=== PATIENT | female | born 1975 | race African-American/Black ===

== ENCOUNTER 2023-03-09 17:44 | Inpatient (IN) | payer MEDICAID, SELFPAY ==
--- NOTE | ~2023-03-09 | CT_ITS ---
EXAMINATION: CT ABDOMEN AND PELVIS WITHOUT CONTRAST CLINICAL INFORMATION: Left lower quadrant pain COMPARISON: None available. TECHNIQUE: Multidetector volumetric imaging was performed from the superior aspect of the liver through the pubic symphysis. Sagittal and coronal reformatted images were obtained on the technologist's workstation. This CT examination was performed using dose optimization techniques as appropriate, variously including the following: *Automated exposure control *Adjustment of mA and/or kV according to patient size (this includes techniques or standardized protocols for targeted exams where dose is matched to indication/reason for exam; i.e. extremities or head) *Use of iterative reconstruction technique DLP: 353 mGy-cm FINDINGS: Exam is limited due to lack of oral and IV contrast and velocity of intra-abdominal fat. LUNG BASES: The visualized lung bases are unremarkable. LIVER, GALLBLADDER, AND BILIARY TREE: The liver is normal in size, shape, and attenuation. No focal hepatic lesion or biliary ductal dilatation is present. The gallbladder is unremarkable with no evidence of radiopaque gallstones, gallbladder wall thickening, or obvious pericholecystic inflammatory changes. PANCREAS: Unremarkable. SPLEEN: Unremarkable. ADRENAL GLANDS: Unremarkable. KIDNEYS AND URETERS: The kidneys are normal in size, shape, and attenuation. No hydronephrosis, hydroureter, or calculi seen. No perinephric stranding. BLADDER: Unremarkable. GASTROINTESTINAL TRACT: Postsurgical changes from gastric bypass. The colon is distended and fluid-filled. There is diffuse wall thickening of the colon suggestive enciso colitis The small bowel is difficult to evaluate due to lack of oral contrast, lack of IV contrast possibly of intra-abdominal fat. There is question of bowel wall thickening of the terminal ileum as well. The appendix is not identified with certainty. No ascites. No free air. ABDOMINAL WALL: No significant hernia is appreciated. LYMPH NODES: Normal. VASCULAR: Unremarkable. PELVIC VISCERA: The uterus is retroverted. OSSEOUS STRUCTURES: Unremarkable. CT/CT abdomen pelvis wo IV con IMPRESSION: Limited exam due to lack of oral and IV contrast and paucity of intra-abdominal fat. Severe enciso colitis. There may be terminal ileitis as well. Postoperative changes from gastric bypass. Fleischner guidelines were followed.
[2023-03-09 18:44] VITALS: BP 110/76; PULSE 118; RESP 18; TEMP 36.8; O2SAT 100
--- NOTE | 2023-03-09 18:45 | ED_ITS ---
HPI - General Adult General Chief complaint: Abdominal Pain Stated complaint: multiple complaints Time Seen by Provider: 03/09/23 22:25 Source: patient Mode of arrival: ambulatory History of Present Illness HPI narrative: This is a 47-year-old female who has a history of bipolar but states that she is compliant with her medications and never misses any of them, she states she had bariatric surgery in 2012 and has been doing well until approximately the 1st part of the year when she states she has had unintentional weight loss. Over the past couple of months this is been associated with lower abdominal discomfort and diarrhea. She denies any nausea or vomiting and states that she tries to eat but that it hurts her stomach. She states that over the past 24-48 hours she has started to have some blood with her episodes of diarrhea. Related Data Home Medications Medication Instructions Recorded Confirmed bupropion HCl 100 mg tablet,12 hr 100 mg PO QAM 06/01/21 sustained-release cyanocobalamin (vitamin B-12) 1,000 mcg PO DAILY 06/01/21 1,000 mcg tablet (Vitamin B-12) ibuprofen 600 mg tablet 600 mg PO TID 06/01/21 quetiapine 400 mg tablet 400 mg PO BEDTIME 06/01/21 Allergies Allergy/AdvReac Type Severity Reaction Status Date / Time No Known Allergies Allergy Verified 06/01/21 14:16 Review of Systems 2 Review of Systems: Pertinent positives and negatives as stated in HPI [facility] Past Medical History Source: nursing notes reviewed Social History Social History Patient Tobacco Use Status: Never used Tobacco Smoked in Last 30 Days: No Use of substances other than those prescribed or required for medical reasons: No Advance Directives: No Advance Directives Information Provided: No Patient : No Physical Exam ED Vital Signs: Vital Signs - 24 hr 03/09/23 18:44 03/09/23 22:03 Temperature 98.3 F 98.6 F Pulse Rate 118 H 118 H Respiratory Rate 18 22 H Blood Pressure 110/76 114/70 Pulse Oximetry 100 100 Oxygen Delivery Method Room Air Room Air BMI result Body Mass Index 20.0 VITAL SIGNS: Reviewed. GENERAL: Cachectic, temporal wasting, in no acute distress. HEAD: Normocephalic/atraumatic EYES: PERRLA, EOMI EARS: Ext canals without abnormality NOSE: Nares patent bilateral OROPHARYNX: no oral lesions noted, posterior pharynx clear NECK: Supple, no adenopathy LUNGS: Normal breath sounds. No adventitious sounds or accessory muscle use. SpO2<100> CARDIOVASCULAR: Regular rate and rhythm without noted murmurs ABDOMEN: Soft, scaphoid, diffuse tenderness without rebound, non-distended with bowel sounds. MUSCULOSKELETAL: No tenderness, deformities, or effusions noted on gross inspection. EXTREMITIES: No cyanosis, clubbing or edema. SKIN: Inspection of the skin reveals no rashes NEUROLOGIC: Alert and oriented x 4. Strength and sensation to light touch were grossly intact x 4. Course Course Course Narrative: This is an RME: Additional HPI, ROS, PE not included below will be deferred to primary provider. This is a [id number], with a hx of bipolar disorder and gastric bypass surgery, presenting to the ER with a complaint of left sided abdominal pain intermittently for 4 months, worsening since Feb 26. Reports that she has lost weight diarrhea with some blood. No nausea, vomiting. She has been seen by her provider who referred her to a GI specialist but is awaiting for a phone call. Plan: Labs, UA, ct abd Medications Administered Generic Name Dose Route Start Last Admin Trade Name Freq PRN Reason Stop Dose Admin Sodium Chloride 1,000 mls @ 999 mls/hr 03/09/23 22:30 03/09/23 22:58 Ns IV 03/09/23 23:30 999 mls/hr .[id number] MAKENZIE Administration Discontinued Medications Generic Name Dose Route Start Last Admin Trade Name Freq PRN Reason Stop Dose Admin Piperacillin Sod/Tazobactam 50 mls @ 100 mls/hr 03/09/23 22:26 03/09/23 22:58 Sod 3.375 gm/ Sodium Chloride IV 03/09/23 22:55 100 mls/hr ONCE ONE Administration Medical Decision Making Medical Decision Making [facility] Narrative: 2229: 47-year-old female with history and clinical presentation, DDX: Cancer, colitis, food allergy, less likely felt to be associated with underlying psychiatric diagnosis. I reviewed all investigations and hematologic indices are significant for leukocytosis and left shift with an elevated platelet count and mildly microcytic anemia. Chemistry indices demonstrate a low potassium but no EBONY and normal level of magnesium. Urinalysis suggestive of possible UTI as urine appears to be clean. Ordered lactic acid and blood cultures and then administered 1 L of IV fluids as well as antibiotics. Patient will also receive potassium repletion. CT scan demonstrates enciso colitis. I discussed the case with the inpatient hospitalist who accepts admission Differential Diagnosis Differential Diagnoses: The differential diagnosis associated with the presentation includes Please see the discussion above Admission/Observation Consideration of admission/observation: Escalation of care including admission/observation considered Please see the discussion above Consult Healthcare Provider Management of the patient was discussed with: Hospitalist Please see the discussion above Lab Data MDM Lab Attestation statement: I reviewed the patient's lab results. Please see the discussion above 03/09/23 19:18 03/09/23 19:18 Labs: Lab Results 03/09/23 03/09/23 03/09/23 Range/Units 19:18 23:00 23:01 WBC 16.2 H (4.8-10.8) X10*3/uL RBC 4.66 (4.20-5.50) X10*6/uL Hgb 11.1 L (12.0-16.0) g/dl Hct 34.9 L (37.0-47.0) % MCV 74.9 L (80.0-98.0) fL MCH 23.8 L (27.0-33.0) pg MCHC 31.8 (31.0-35.0) g/dl RDW 14.3 (11.0-16.0) % Plt Count 660 H (160-400) X10*3/uL MPV 8.6 L (9.4-12.3) fL Immature Gran % (Auto) 0.6 H (0.0-0.4) % Neut % (Auto) 81.0 H (45-73) % Lymph % (Auto) 9.1 L (20-40) % [place] % (Auto) 9.0 (2-11) % Eos % (Auto) 0.1 (0-4) % Baso % (Auto) 0.2 (0-2) % Lymph # (Auto) 1.5 (1.2-4.9) X10*3/uL [place] # (Auto) 1.5 H (0.1-1.2) X10*3/uL Eos # (Auto) 0.0 (0.0-0.4) X10*3/uL Baso # (Auto) 0.0 (0.0-0.2) X10*3/uL Abs Immat Gran (auto) 0.09 H (0.00-0.03) X10*3/uL Absolute Neuts (auto) 13.1 H (2.0-8.3) x10*3/uL Absolute Nucleated RBC 0.000 (0.0-0.012) X10*3/uL Nucleated RBC % (auto) 0.0 (0.0-0.2) /100WBC Sodium 133 L (135-145) mmol/L Potassium 3.0 L (3.3-5.1) mmol/L Chloride 101 (96-108) mmol/L Carbon Dioxide 22 (22-29) mmol/L Anion Gap 13 (12-20) BUN 10 (9-16) mg/dL Creatinine 0.82 (0.5-1.4) mg/dL Estim Creat Clear Calc 79.3 Estimated GFR > 60 Random Glucose 86 (60-115) mg/dL Lactic Acid 1.0 (0.5-2.0) mmol/L Calcium 8.3 L (8.4-10.2) mg/dL Magnesium 1.9 (1.6-2.6) mg/dL Total Bilirubin 0.6 (0.0-1.0) mg/dL Direct Bilirubin 0.3 (0.0-0.5) mg/dL AST 20 (5-31) U/L ALT 14 (0-31) U/L Alkaline Phosphatase 81 (39-117) U/L Total Protein 6.2 L (6.5-8.0) g/dL Albumin 3.2 L (3.5-5.0) g/dL Lipase 5 L (8-78) U/L Urine Color Yellow Urine Appearance Clear Urine pH 6.0 (5.0-9.0) Ur Specific [place] 1.020 (1.005-1.025) Urine Protein Negative (Neg-Trace) mg/dL Urine Glucose (UA) Negative (Negative) mg/dL Urine Ketones 80 (Negative) mg/dL Urine Blood Small (1+) H (Negative) Urine Nitrite Negative (Negative) Ur Leukocyte Esterase Moderate (2+) H (Negative) Urine RBC >20 H (0-2) /HPF Urine WBC 11-20 H (0-5) /HPF Ur Squamous Epith Cells 0-2 (0-2) /HPF Urine Bacteria 4+ (None Seen) Hyaline Casts 0-2 (0-2) /LPF Radiology Impression Discussion of test interpretation with radiology: I have reviewed the radiologist's reading. Radiologist Impression: Please see the discussion above Chronic Conditions Patient?s care impacted by: Other Bipolar Critical Care Time Critical Care Time Critical Care Time: Yes Total Critical Care Time: 30 Attestation: I personally attest to this time spent taking care of the patient. Discharge Plan Discharge Clinical Impression: Sepsis, Pancolitis, UTI (urinary tract infection), Hypokalemia Patient Disposition: Admitted As Inpatient Prescriptions: No Action cyanocobalamin (vitamin B-12) [Vitamin B-12] 1,000 mcg tablet 1,000 mcg PO DAILY quetiapine 400 mg tablet 400 mg PO BEDTIME bupropion HCl 100 mg tablet sustained-release 12 hr 100 mg PO QAM ibuprofen 600 mg tablet 600 mg PO TID
[2023-03-09 19:22] LABS: MANUAL DIFF FLAG NO
[2023-03-09 19:24] LABS: Basophils Percent Auto 0.2 % (0-2); Eosinophils Percent Auto 0.1 % (0-4); Hematocrit 34.9 % (37.0-47.0); Hemoglobin 11.1 g/dl (12.0-16.0); Imm Gran Abs Auto 0.09 X10*3/uL (0.00-0.03); Imm Gran Pct Auto 0.6 % (0.0-0.4); Lymphocytes Absolute Auto 1.5 X10*3/uL (1.2-4.9); Lymphocytes Percent Auto 9.1 % (20-40); Mean Corpuscular HGB Conc 31.8 g/dl (31.0-35.0); Mean Corpuscular Hemoglobin 23.8 pg (27.0-33.0); Mean Corpuscular Volume 74.9 fL (80.0-98.0); Mean Platelet Volume 8.6 fL (9.4-12.3); Monocytes Absolute Auto 1.5 X10*3/uL (0.1-1.2); Neutrophils Absolute Auto 13.1 x10*3/uL (2.0-8.3); Platelet Count 660 X10*3/uL (160-400); Red Blood Count 4.66 X10*6/uL (4.20-5.50); Red Cell Distribution Width 14.3 % (11.0-16.0); White Blood Count 16.2 X10*3/uL (4.8-10.8)
[2023-03-09 19:58] LABS: Alanine Aminotransferase 14 U/L (0-31); Albumin Level 3.2 g/dL (3.5-5.0); Alkaline Phosphatase 81 U/L (39-117); Anion Gap 13 (12-20); Aspartate Amino Transferase 20 U/L (5-31); Bilirubin Direct 0.3 mg/dL (0.0-0.5); Bilirubin Total 0.6 mg/dL (0.0-1.0); Blood Urea Nitrogen 10 mg/dL (9-16); Calcium 8.3 mg/dL (8.4-10.2); Carbon Dioxide 22 mmol/L (22-29); Chloride 101 mmol/L (96-108); Creatinine Clr Calc Pharmacy 79.3; Estimated Glomerular Filt Rate > 60; Glucose Random 86 mg/dL (60-115); Lipase 5 U/L (8-78); Magnesium 1.9 mg/dL (1.6-2.6); Sodium 133 mmol/L (135-145); Total Protein 6.2 g/dL (6.5-8.0)
[2023-03-09 22:03] VITALS: BP 114/70; PULSE 118; RESP 22; TEMP 37; O2SAT 100
--- NOTE | 2023-03-09 22:04 | MHC.EDTECH ---
This tech was doing hourly rounding and vitals ,patients heart rate was at 118, RN Elza was made aware, patient changed into hospital attire and placed on cardiac monitor technician. Attempted to get a urine sample ,patient is unable to give specimen at this time. Call hopper within reach
[2023-03-09] MEDS: Piperacillin Sodium/Tazobactam 3.375 GM in 0.9 % Sodium Chloride 50 ML IV (22:58)
[2023-03-09] MEDS: 0.9 % Sodium Chloride 1,000 ML 999 ML IV (22:58)
[2023-03-09 23:13] LABS: Appearance Urine Clear; Color Urine Yellow; Glucose Urine UA Negative (Negative); Leukocyte Esterase Urine Moderate (2+) (Negative); Nitrite Urine Negative (Negative); UMIC TRIGGER UACC YES; Urine Blood Small (1+) (Negative); Urine Ketones 80 mg/dL (Negative); Urine Protein Negative (Neg-Trace)
[2023-03-09 23:18] LABS: Bacteria Urine 4+ (None Seen); Hyaline Casts Urine 0-2 /LPF (0-2); RBC Urine >20 /HPF (0-2); Squamous Epithelial Cell Urine 0-2 /HPF (0-2); UACC Culture Trigger YES
--- NOTE | 2023-03-09 23:33 | P.HPHOSP_ITS ---
History of Present Illness Date of Service: 03/09/23 Chief Complaint: Abdominal Pain This is a 47-year-old female with pertinent history of mood disorder, bariatric surgery in 2013 who presents to the emergency department for evaluation of abdominal discomfort and diarrhea. Patient states she has been having generalized abdominal discomfort which has been ongoing for the last few months. The abdominal pain worsened 10 days prior to presentation and it has been associated with nonbloody diarrhea. Patient states he is unable to keep anything down as she has a loose bowel movement every time she eats anything. No nausea or vomiting. The discomfort is in the lower abdomen, constant, without any relieving factors and nonradiating. Patient also noticed 2 episodes of blood in stools last week. No history of similar episodes in the past. No fever, chills, chest discomfort, palpitations, shortness of breath, changes in urinary habits. In the emergency department, patient was found to be septic and imaging concerning for pancolitis Review of Systems 2 Constitutional: Constitutional: Reports fatigue, Reports lethargy, Reports malaise, Reports poor appetite and Reports weight loss Cardiovascular: Cardiovascular: Reports no additional cardiovascular complaints Respiratory: Respiratory: Reports no additional respiratory complaints Gastrointestinal: Gastrointestinal: Reports abdominal pain and Reports loose stools Genitourinary: Genitourinary: Reports no additional female genitourinary complaints Endocrine: Endocrine: Reports fatigue PMFSH Medical History (Updated 03/09/23 @ 23:47 by iTmothy Mejia MD) Mood disorder Pertinent family history: No family history of early CAD Surgical History (Updated 03/09/23 @ 23:48 by Timothy Mejia MD) H/O bariatric surgery Social History Patient Tobacco Use Status: Never used Tobacco Smoked in Last 30 Days: No Use of substances other than those prescribed or required for medical reasons: No Advance Directives: No Advance Directives Information Provided: No Patient : No Meds Allergies Allergy/AdvReac Type Severity Reaction Status Date / Time No Known Allergies Allergy Verified 06/01/21 14:16 Home Medications Medication Instructions Recorded Confirmed Last Taken Type bupropion HCl 100 mg tablet,12 hr 100 mg PO QAM 06/01/21 Unknown History sustained-release cyanocobalamin (vitamin B-12) 1,000 mcg PO DAILY 06/01/21 Unknown History 1,000 mcg tablet (Vitamin B-12) ibuprofen 600 mg tablet 600 mg PO TID 06/01/21 Unknown History quetiapine 400 mg tablet 400 mg PO BEDTIME 06/01/21 Unknown History Physical Exam 2 Vital Signs and Narrative: Vital Signs: Last Vital Signs Temp 98.6 F 03/09/23 22:03 Pulse 118 H 03/09/23 22:03 Resp 22 H 03/09/23 22:03 BP 114/70 03/09/23 22:03 Pulse Ox 100 03/09/23 22:03 O2 Del Method Room Air 03/09/23 22:03 BMI result Body Mass Index 20.0 Middle-aged male lying in bed in no distress Neck supple, no JVD Tachycardic with regular rhythm, S1-S2 heard Regular breath sounds bilaterally, no wheezing or crackles appreciated Abdomen soft nontender, no guarding, no rigidity Patient is awake, alert and oriented to self, place, time and person ; no focal motor deficit Psych: Normal mood No pedal edema Results Labs 03/09/23 19:18 03/09/23 19:18 Labs: Laboratory Results - last 24 hr 03/09/23 03/09/23 03/09/23 19:18 23:00 23:01 MCV 74.9 L MCH 23.8 L MCHC 31.8 RDW 14.3 Plt Count 660 H MPV 8.6 L Immature Gran % (Auto) 0.6 H Neut % (Auto) 81.0 H Lymph % (Auto) 9.1 L [place] % (Auto) 9.0 Eos % (Auto) 0.1 Baso % (Auto) 0.2 Lymph # (Auto) 1.5 [place] # (Auto) 1.5 H Eos # (Auto) 0.0 Baso # (Auto) 0.0 Abs Immat Gran (auto) 0.09 H Absolute Neuts (auto) 13.1 H Absolute Nucleated RBC 0.000 Nucleated RBC % (auto) 0.0 Anion Gap 13 Estim Creat Clear Calc 79.3 Estimated GFR > 60 Random Glucose 86 Lactic Acid 1.0 Calcium 8.3 L Magnesium 1.9 Total Bilirubin 0.6 Direct Bilirubin 0.3 AST 20 ALT 14 Alkaline Phosphatase 81 Total Protein 6.2 L Albumin 3.2 L Lipase 5 L Urine Color Yellow Urine Appearance Clear Urine pH 6.0 Ur Specific [place] 1.020 Urine Protein Negative Urine Glucose (UA) Negative Urine Ketones 80 Urine Blood Small (1+) H Urine Nitrite Negative Ur Leukocyte Esterase Moderate (2+) H Urine RBC >20 H Urine WBC 11-20 H Ur Squamous Epith Cells 0-2 Urine Bacteria 4+ Hyaline Casts 0-2 Imaging Radiologist's Impressions: Impressions Abdomen/Pelvis CT 03/09/23 19:52 IMPRESSION: Limited exam due to lack of oral and IV contrast and paucity of intra-abdominal fat. Severe enciso colitis. There may be terminal ileitis as well. Postoperative changes from gastric bypass. Fleischner guidelines were followed. Assessment and Plan (1) Pancolitis: Status: Acute (2) Sepsis: Status: Acute Plan This is a 47-year-old female with pertinent history of mood disorder, bariatric surgery in 2012 who presents to the emergency department for evaluation of abdominal discomfort and diarrhea. #. Abdominal pain with diarrhea. Imaging with enciso colitis. Will admit patient and initiate empiric IV antibiotics. Gastroenterology consulted, appreciate assistance. GI panel and C diff pending #. Sepsis due to above. Resuscitated with IV crystalloids. Lactic acid and blood culture obtained #. Hypokalemia due to GI losses. Repleted #. Asymptomatic bacteriuria. No urinary symptoms. On antibiotics as above #. Mood disorder. Continue home mood stabilizers Med rec pending DVT prophylaxis: Lovenox Full code Admit as inpatient and will require two night minimum hospital stay for IV antibiotics Time Spent With Patient Time: Total time managing care of this patient today ____ minutes. Quality Stroke Does the patient have a stroke diagnosis?: No VTE Prior VTE?: No VTE Risk Level:: Medical - moderate - high VTE Device Contraindication: Treatment Not Indicated VTE Drug Contraindication: N/A - Med Ordered
[2023-03-09 23:39] VITALS: BP 116/82; PULSE 108; RESP 16; TEMP 36.8; O2SAT 98
--- NOTE | 2023-03-09 23:40 | MHC.EDTECH ---
Hourly rounds and vitals completed,Belongings list completed and call hopper within reach.
[2023-03-09 23:49] LABS: UPreg QC Valid YES; Urine Pregnancy NEGATIVE (NEGATIVE)
[2023-03-09] MEDS: QUEtiapine Fumarate 100 MG TABLET PO (23:57)
[2023-03-09] MEDS: Potassium Chloride/H20 10 MEQ/100 ML PIGGYBACK 100 MEQ IV (23:59)
[2023-03-10] MEDS: Potassium Chloride Packet 20 MEQ PACKET 40 MEQ PO (00:03)
[2023-03-10] MEDS: Potassium Chloride/H20 10 MEQ/100 ML PIGGYBACK 100 MEQ IV (01:14)
[2023-03-10 01:25] LABS: CDiff Gene PCR POSITIVE (Negative)
[2023-03-10 02:04] LABS: CDIFF Internal ctrl Dots and bkg OK (V); CDiff Toxin Negative (Negative)
--- NOTE | 2023-03-10 02:16 | MHC.EDTECH ---
Hourly rounds completed,patient is sleeping comfortably at this time and call hopper within reach.
[2023-03-10 03:44] VITALS: BP 104/58; PULSE 104; RESP 16; TEMP 36.9; O2SAT 97
--- NOTE | 2023-03-10 03:46 | MHC.EDTECH ---
Hourly rounds and vitals completed,patient is sleeping comfortably at this time. patient's blood pressure is low 104/58 RN Elza made aware
[2023-03-10 05:24] LABS: MANUAL DIFF FLAG NO
[2023-03-10 05:38] LABS: Basophils Percent Auto 0.3 % (0-2); Eosinophils Percent Auto 0.2 % (0-4); Hematocrit 31.2 % (37.0-47.0); Hemoglobin 9.8 g/dl (12.0-16.0); Imm Gran Abs Auto 0.07 X10*3/uL (0.00-0.03); Imm Gran Pct Auto 0.6 % (0.0-0.4); Lymphocytes Absolute Auto 1.7 X10*3/uL (1.2-4.9); Mean Corpuscular HGB Conc 31.4 g/dl (31.0-35.0); Mean Corpuscular Hemoglobin 23.6 pg (27.0-33.0); Mean Corpuscular Volume 75.2 fL (80.0-98.0); Mean Platelet Volume 8.7 fL (9.4-12.3); Monocytes Absolute Auto 1.4 X10*3/uL (0.1-1.2); Monocytes Percent Auto 12.4 % (2-11); Neutrophils Absolute Auto 8.3 x10*3/uL (2.0-8.3); Neutrophils Percent Auto 71.5 % (45-73); Platelet Count 563 X10*3/uL (160-400); Red Blood Count 4.15 X10*6/uL (4.20-5.50); Red Cell Distribution Width 14.5 % (11.0-16.0); White Blood Count 11.6 X10*3/uL (4.8-10.8)
[2023-03-10 05:58] LABS: Anion Gap 15 (12-20); Blood Urea Nitrogen 7 mg/dL (9-16); Calcium 7.6 mg/dL (8.4-10.2); Carbon Dioxide 17 mmol/L (22-29); Chloride 105 mmol/L (96-108); Creatinine Clr Calc Pharmacy 98.5; Estimated Glomerular Filt Rate > 60; Glucose Random 69 mg/dL (60-115); Potassium 3.4 mmol/L (3.3-5.1); Sodium 134 mmol/L (135-145)
--- NOTE | 2023-03-10 06:07 | MHC.EDTECH ---
Hourly rounds completed ,patient is sleeping at this time and call hopper within reach.
[2023-03-10] MEDS: Piperacillin Sodium/Tazobactam 4.5 GM in 0.9 % Sodium Chloride 100 ML IV ×4 (06:12→23:55)
--- NOTE | 2023-03-10 06:29 | PC.NURSE ---
Pt is currently resting in bed at this time. A&Ox4, GCS 15, with warm, dry skin. Pt denies pain at this time. Pt has a 20g IV in the left AC, flushing well. Pt has been ambulatory with one assist to the bathroom. Pt is c-diff positive, contact precautions are in place.
[2023-03-10 08:00] VITALS: BP 93/59; PULSE 106; RESP 20; O2SAT 100
[2023-03-10] MEDS: Enoxaparin Sodium 40 MG/0.4 ML SYRINGE SUBCUT (08:10)
[2023-03-10 09:08] LABS: Adenovirus F 40/41 Not Detected (Not Detect.); Astrovirus Not Detected (Not Detect.); Campylobacter Not Detected (Not Detect.); Cryptosporidium Not Detected (Not Detect.); Cyclospora cayetanensis Not Detected (Not Detect.); E. coli EAEC Not Detected (Not Detect.); E. coli EPEC Not Detected (Not Detect.); E. coli ETEC Not Detected (Not Detect.); E. coli STEC Not Detected (Not Detect.); Entamoeba histolytica Not Detected (Not Detect.); Giardia lamblia Not Detected (Not Detect.); Norovirus GI/GII Not Detected (Not Detect.); Plesiomonas shigelloides Not Detected (Not Detect.); Rotavirus A Not Detected (Not Detect.); Salmonella Not Detected (Not Detect.); Sapovirus Not Detected (Not Detect.); Shigella sp./EIEC Not Detected (Not Detect.); Vibrio Not Detected (Not Detect.); Vibrio Cholerae Not Detected (Not Detect.); Yersinia enterocolitica Not Detected (Not Detect.)
--- NOTE | 2023-03-10 09:47 | PHA.MEDREC ---
Pharmacy Consult ? Medication Reconciliation Pharmacy has completed the medication reconciliation.PT HAD MEDICATION BOTTLES THAT MATCHED CLAIM HISTORY. SHE CONFIRMED OTC MEDICATIONS AND LAST DOSE OF MEDICATIONS WAS TUESDAY MORNING.
--- NOTE | 2023-03-10 10:26 | MHC.CM.PN ---
Met w/pt to review d/c planning needs: pt resides w/ 16 year old child - independent w/care needs, no services or DME. Vehicle in ED lot: Pt's sister arriving to care for dtr. No additional services needed. HCP copy requested: PCP Tia PITT.
--- NOTE | 2023-03-10 11:13 | HO.PM.IMPN ---
Subjective Subjective Date of Service: 03/10/23 Interval History: f/u on abdominal pain, n/v colitis interval history, she fels better, no less diarrhea, minimal pain, Physical Exam Vital Signs: Vital Signs: Last Vital Signs Temp 98.4 F 03/10/23 03:44 Pulse 106 H 03/10/23 08:00 Resp 20 03/10/23 08:00 BP 93/59 L 03/10/23 08:00 Pulse Ox 100 03/10/23 08:00 O2 Del Method Room Air 03/10/23 08:00 BMI result Body Mass Index 20.0 Const: Other: General: AO X 3, no acute distress Resp: CTA bilateral CVS: S1,S2,RRR GI: +BS, NT, no distention Skin: No rash Neuro: motor grossly intact Psych: appropriate affect Objective Data Active Medications Acetaminophen (Acetaminophen 325 Mg Tablet) 650 mg PO Q6H PRN PRN Reason: Pain, Mild (Pain Scale 1-3) Acetaminophen (Acetaminophen Supp 650 Mg Supp.Rect) 650 mg [place] Q6H PRN PRN Reason: Pain, Mild (Pain Scale 1-3) Enoxaparin Sodium (Enoxaparin Sodium 40 Mg/0.4 Ml Syringe) 40 mg SUBCUT Q24H [facility] Last Admin: 03/10/23 08:10 Dose: 40 mg Documented By: RAJENDRA Piperacillin Sod/Tazobactam (Sod 4.5 gm/ Sodium Chloride) 100 mls @ 200 mls/hr IV Q6H [facility] Last Admin: 03/10/23 06:12 Dose: 200 mls/hr Documented By: TONNY Melatonin (Melatonin 3 Mg Tablet) 6 mg PO BEDTIME PRN PRN Reason: Insomnia Ondansetron HCl (Ondansetron Hcl 4 Mg/2 Ml Vial) 4 mg IVPUSH Q8H PRN PRN Reason: Nausea and Vomiting Sodium Chloride (0.9 % Sodium Chloride Flush 3 Ml Syringe) 3 ml IVFLUSH QSHIFT [facility] Last Admin: 03/10/23 00:00 Dose: 3 ml Documented By: TONNY Labs 03/10/23 04:36 03/10/23 04:36 Labs: Laboratory Results - last 24 hr 03/09/23 03/09/23 03/09/23 19:18 23:00 23:01 MCV 74.9 L MCH 23.8 L MCHC 31.8 RDW 14.3 Plt Count 660 H MPV 8.6 L Immature Gran % (Auto) 0.6 H Neut % (Auto) 81.0 H Lymph % (Auto) 9.1 L Iron % (Auto) 9.0 Eos % (Auto) 0.1 Baso % (Auto) 0.2 Lymph # (Auto) 1.5 Iron # (Auto) 1.5 H Eos # (Auto) 0.0 Baso # (Auto) 0.0 Abs Immat Gran (auto) 0.09 H Absolute Neuts (auto) 13.1 H Absolute Nucleated RBC 0.000 Nucleated RBC % (auto) 0.0 Anion Gap 13 Estim Creat Clear Calc 79.3 Estimated GFR > 60 Random Glucose 86 Lactic Acid 1.0 Calcium 8.3 L Magnesium 1.9 Total Bilirubin 0.6 Direct Bilirubin 0.3 AST 20 ALT 14 Alkaline Phosphatase 81 Total Protein 6.2 L Albumin 3.2 L Lipase 5 L Beta HCG, Quant Cancelled Urine Color Yellow Urine Appearance Clear Urine pH 6.0 Ur Specific [place] 1.020 Urine Protein Negative Urine Glucose (UA) Negative Urine Ketones 80 Urine Blood Small (1+) H Urine Nitrite Negative Ur Leukocyte Esterase Moderate (2+) H Urine RBC >20 H Urine WBC 11-20 H Ur Squamous Epith Cells 0-2 Urine Bacteria 4+ Hyaline Casts 0-2 Urine Test NEGATIVE Stl C. cayetanensis PCR Stool Rotavirus A PCR Stl Adenov F 40/41 PCR Stool Astrovirus (PCR) Stool Campylobacter PCR Stool Cryptosporidium PCR Stl Sh Tox Pr E STEC PCR Stool E coli O157 PCR Stl Enterotoxigenic E PCR Stool EPEC (PCR) Stool EAEC (PCR) Stl E. histolytica PCR Stool Giardia Lamblia PCR Stl P. shigelloides PCR Stool Salmonella PCR Stool Sapovirus (PCR) Stl Shigella/EIEC PCR St Y.enterocolitica PCR Stool Vibrio (PCR) Stl Vibrio cholerae PCR Stl Norovirus GI/GII PCR C. difficile Tox B Gene C. difficile Toxin A&B C. difficile Interpret 03/10/23 03/10/23 00:20 04:36 MCV 75.2 L MCH 23.6 L MCHC 31.4 RDW 14.5 Plt Count 563 H MPV 8.7 L Immature Gran % (Auto) 0.6 H Neut % (Auto) 71.5 Lymph % (Auto) 15.0 L Iron % (Auto) 12.4 H Eos % (Auto) 0.2 Baso % (Auto) 0.3 Lymph # (Auto) 1.7 Iron # (Auto) 1.4 H Eos # (Auto) 0.0 Baso # (Auto) 0.0 Abs Immat Gran (auto) 0.07 H Absolute Neuts (auto) 8.3 Absolute Nucleated RBC 0.000 Nucleated RBC % (auto) 0.0 Anion Gap 15 Estim Creat Clear Calc 98.5 Estimated GFR > 60 Random Glucose 69 Lactic Acid Calcium 7.6 L D Magnesium Total Bilirubin Direct Bilirubin AST ALT Alkaline Phosphatase Total Protein Albumin Lipase Beta HCG, Quant Urine Color Urine Appearance Urine pH Ur Specific [place] Urine Protein Urine Glucose (UA) Urine Ketones Urine Blood Urine Nitrite Ur Leukocyte Esterase Urine RBC Urine WBC Ur Squamous Epith Cells Urine Bacteria Hyaline Casts Urine Test Stl C. cayetanensis PCR Not Detected Stool Rotavirus A PCR Not Detected Stl Adenov F 40/41 PCR Not Detected Stool Astrovirus (PCR) Not Detected Stool Campylobacter PCR Not Detected Stool Cryptosporidium PCR Not Detected Stl Sh Tox Pr E STEC PCR Not Detected Stool E coli O157 PCR Not applicable Stl Enterotoxigenic E PCR Not Detected Stool EPEC (PCR) Not Detected Stool EAEC (PCR) Not Detected Stl E. histolytica PCR Not Detected Stool Giardia Lamblia PCR Not Detected Stl P. shigelloides PCR Not Detected Stool Salmonella PCR Not Detected Stool Sapovirus (PCR) Not Detected Stl Shigella/EIEC PCR Not Detected St Y.enterocolitica PCR Not Detected Stool Vibrio (PCR) Not Detected Stl Vibrio cholerae PCR Not Detected Stl Norovirus GI/GII PCR Not Detected C. difficile Tox B Gene POSITIVE A* C. difficile Toxin A&B Negative C. difficile Interpret SEE NOTE Assessment and Plan (1) Pancolitis: Status: Acute Plan This is a 47-year-old female with pertinent history of mood disorder, bariatric surgery in 2013 who presents to the emergency department for evaluation of abdominal discomfort and diarrhea. #. Abdominal pain with diarrhea. CT shows pancolitis. GI panel pending. Continue Zosyn, GI consult pending #. Sepsis d/t colitis, treatment as above #. Hypokalemia due to GI losses. Repleted and resolved #. Asymptomatic bacteriuria. No urinary symptoms. On antibiotics as above #. Mood disorder. Continue home mood stabilizers Med rec completed DVT prophylaxis: Lovenox Full code Admit as inpatient and will require two night minimum hospital stay for IV antibiotics Time Spent With Patient Time: Total time managing care of this patient today ____ minutes. Quality Stroke Does the patient have a stroke diagnosis?: No VTE Prior VTE?: No VTE Risk Level:: Medical - moderate - high VTE Device Contraindication: Treatment Not Indicated VTE Drug Contraindication: N/A - Med Ordered
[2023-03-10] MEDS: 0.9 % Sodium Chloride Flush 3 ML SYRINGE IVFLUSH ×3 (11:20→20:46)
--- NOTE | 2023-03-10 13:02 | PM.EVENT ---
Event Note Date of Service: 03/10/23 Event Note: GI consult dictated Colonoscopy planned for 03/[address] findings. Time Spent With Patient Time: Total time managing care of this patient today ____ minutes.
--- NOTE | 2023-03-10 13:34 | CONS_ITS ---
DATE OF SERVICE: 03/10/2023 REFERRING PHYSICIAN: Paulo Griggs MD REASON FOR CONSULTATION: Colitis. HISTORY OF PRESENT ILLNESS: The patient is a pleasant 47-year-old woman who was admitted to the hospital after presenting to the emergency room with abdominal pain and diarrhea. She reports symptoms of abdominal pain over the past several months, worsening about a week and a half before her emergency room visit. She has had associated diarrhea, which was nonbloody, and then subsequently became associated with blood in the stool. She denies any fevers or chills. She has lost weight, but has had a gastric bypass many years ago and reports her weight is generally stabilized. She was also treated for dental extractions approximately 2 months ago and believes she may have gotten antibiotics as well as NSAIDs. She has no personal or previous history of colitis. She has never had any lower GI tract evaluation. She was evaluated in the emergency department with laboratory studies documenting an elevated white blood cell count at 16, with thrombocytosis. Stool testing was negative for GI panel, but did show a positive C diff gene PCR with a negative A and B toxin and was interpreted as showing colonization. The patient denies a prior history of C diff infection. PAST MEDICAL HISTORY: 1. Mood disorder. 2. Gastric bypass surgery as above. CURRENT MEDICATIONS: Her current medication list is reviewed in the chart. ALLERGIES: THERE ARE NONE REPORTED. FAMILY HISTORY: This is negative for colitis. SOCIAL HISTORY: There is no current tobacco, alcohol, or substance abuse. REVIEW OF SYSTEMS: SKIN: No pruritus. HEENT: Negative. CARDIOPULMONARY: She denies shortness of breath or chest pain. GASTROINTESTINAL: As above. GENITOURINARY: Negative. NEUROPSYCHIATRIC: Negative. PHYSICAL EXAMINATION: GENERAL: Shows a pleasant female, in no acute distress. VITAL SIGNS: Stable. SKIN: Anicteric. HEENT: Shows no scleral icterus. NECK: Without lymphadenopathy or thyromegaly. LUNGS: Clear. HEART: Shows a regular rate and rhythm. S1, S2. No murmur. ABDOMEN: Soft without focal masses or tenderness. Bowel sounds are present. No organomegaly is noted. EXTREMITIES: Show mild edema bilaterally. DIAGNOSTIC DATA: Laboratory data and CT scanning are reviewed. Her CT scan is interpreted as showing pancolitis. IMPRESSION: Diarrhea with abdominal pain and abnormal imaging of her colon. This does appear consistent with a colitis. There does appear to be some chronic component to this based on her symptoms occurring over the past several weeks. Possible causes include inflammatory bowel disease, infectious colitis including C diff, and ischemic colitis, which would be less likely. I have recommended that she undergo limited bowel prep and colonoscopy tomorrow to evaluate for the etiology of her colitis. At this time, her C diff studies appeared a colonization rather than acute infection, but I would recommend continuing contact precautions. Thanks for asking me to see her. I will follow her in the hospital with you. MD ANTIONETTE Hayes/CHRISTELLE / [phone]
[2023-03-10 13:39] VITALS: BP 118/69; PULSE 93; RESP 16; TEMP 36; O2SAT 98
[2023-03-10 13:45] VITALS: BMI 19.5
[2023-03-10] MEDS: Cholecalciferol (Vitamin D3) 25 MCG TABLET 50 MCG PO (14:36)
[2023-03-10] MEDS: Multivitamin TABLET 1 TAB PO (14:36)
[2023-03-10] MEDS: Cyanocobalamin (Vitamin B-12) 1,000 MCG TABLET 1000 MCG PO (14:36)
[2023-03-10] MEDS: PEG 3350/Na Sulf,Bicarb,Cl/KCL 4,000 ML SOLN.RECON 4000 ML PO (17:42)
[2023-03-10 19:27] VITALS: BP 107/73; PULSE 84; RESP 14; TEMP 36.5; O2SAT 100
[2023-03-10] MEDS: QUEtiapine Fumarate 200 MG TABLET PO (20:45)
[2023-03-11] VITALS (8 sets, daily range): BP systolic 87–111; BP diastolic 43–77; PULSE 71–100; RESP 14–20; TEMP 35.9–36.6; O2SAT 98–100
[2023-03-11] MEDS: Piperacillin Sodium/Tazobactam 4.5 GM in 0.9 % Sodium Chloride 100 ML IV (05:42)
[2023-03-11] MEDS: 0.9 % Sodium Chloride Flush 3 ML SYRINGE IVFLUSH (08:33)
[2023-03-11] MEDS: Cyanocobalamin (Vitamin B-12) 1,000 MCG TABLET 1000 MCG PO (08:33)
[2023-03-11] MEDS: Multivitamin TABLET 1 TAB PO (08:33)
[2023-03-11] MEDS: Cholecalciferol (Vitamin D3) 25 MCG TABLET 50 MCG PO (08:33)
--- NOTE | 2023-03-11 10:44 | HO.PM.IMPN ---
Subjective Subjective Date of Service: 03/11/23 Physical Exam Vital Signs: Vital Signs: Last Vital Signs Temp 97.8 F 03/11/23 07:43 Pulse 100 03/11/23 07:43 Resp 16 03/11/23 07:43 BP 103/77 03/11/23 07:43 Pulse Ox 100 03/11/23 07:43 O2 Del Method Room Air 03/11/23 07:43 BMI result Body Mass Index 19.5 Objective Data Active Medications Acetaminophen (Acetaminophen 325 Mg Tablet) 650 mg PO Q6H PRN PRN Reason: Pain, Mild (Pain Scale 1-3) Acetaminophen (Acetaminophen Supp 650 Mg Supp.Rect) 650 mg [place] Q6H PRN PRN Reason: Pain, Mild (Pain Scale 1-3) Cyanocobalamin (Cyanocobalamin (Vitamin B-12) 1,000 Mcg Tablet) 1,000 mcg PO DAILY [facility] Last Admin: 03/11/23 08:33 Dose: 1,000 mcg Documented By: TONY Enoxaparin Sodium (Enoxaparin Sodium 40 Mg/0.4 Ml Syringe) 40 mg SUBCUT Q24H [facility] Last Admin: 03/10/23 08:10 Dose: 40 mg Documented By: RAJENDRA Piperacillin Sod/Tazobactam (Sod 4.5 gm/ Sodium Chloride) 100 mls @ 200 mls/hr IV Q6H [facility] Last Infusion: 03/11/23 06:30 Dose: Infused Documented By: MARLY Melatonin (Melatonin 3 Mg Tablet) 6 mg PO BEDTIME PRN PRN Reason: Insomnia Multivitamins/Vitamin C (Multivitamin Tablet) 1 tab PO DAILY [facility] Last Admin: 03/11/23 08:33 Dose: 1 tab Documented By: TONY Non-Formulary Medication (Bupropion Hcl) 100 mg PO DAILY [facility] Ondansetron HCl (Ondansetron Hcl 4 Mg/2 Ml Vial) 4 mg IVPUSH Q8H PRN PRN Reason: Nausea and Vomiting Quetiapine Fumarate (Quetiapine Fumarate 200 Mg Tablet) 200 mg PO BEDTIME [facility] Last Admin: 03/10/23 20:45 Dose: 200 mg Documented By: MARLY Sodium Chloride (0.9 % Sodium Chloride Flush 3 Ml Syringe) 3 ml IVFLUSH QSHIFT [facility] Last Admin: 03/11/23 08:33 Dose: 3 ml Documented By: TONY Vitamin D (Cholecalciferol (Vitamin D3) 25 Mcg Tablet) 50 mcg PO DAILY [facility] Last Admin: 03/11/23 08:33 Dose: 50 mcg Documented By: TONY Labs 03/10/23 04:36 03/10/23 04:36 Microbiology Microbiology Results: Microbiology 03/09/23 23:00 Blood Culture - Preliminary Blood - Venous No growth after 24 hours. 03/09/23 23:00 Blood Culture - Preliminary Blood - Venous No growth after 24 hours. Assessment and Plan (1) Pancolitis: Status: Acute Plan This is a 47-year-old female with pertinent history of mood disorder, bariatric surgery in 2012 who presents to the emergency department for evaluation of abdominal discomfort and diarrhea. #. Abdominal pain with diarrhea. CT shows pancolitis. continue Zosyn, colonscopy today #. Sepsis d/t colitis, treatment as above -advance diet after colonoscopy #. Hypokalemia due to GI losses. Repleted and resolved #. Asymptomatic bacteriuria. No urinary symptoms. On antibiotics as above, culture in process #. Mood disorder. Continue home mood stabilizers DVT prophylaxis: Lovenox Full code Admit as inpatient and will require two night minimum hospital stay for IV antibiotics Time Spent With Patient Time: Total time managing care of this patient today ____ minutes. Quality Stroke Does the patient have a stroke diagnosis?: No VTE Prior VTE?: No VTE Risk Level:: Medical - moderate - high VTE Device Contraindication: Treatment Not Indicated VTE Drug Contraindication: N/A - Med Ordered
--- NOTE | 2023-03-11 11:07 | HO.ANESPROP2 ---
HPI - Anesthesia Eval Consult details Narrative: 47 yo female patient for Colonoscopy PMFSH Active Problems Active Problems: All Active Problems (Updated 03/09/23 @ 11:14 by Kylie Meehan MD) H/O bariatric surgery (Acute) Mood disorder (Acute) Hypokalemia (Acute) UTI (urinary tract infection) (Acute) Pancolitis (Acute) Sepsis (Acute) Past Medical History Medical History Mood disorder Family History Family history of problems with anesthesia: No Surgical History Surgical History H/O bariatric surgery History of Problems with Anesthesia: No Social History Social History Household Members: Children Housing: Apartment Do you presently have visiting nurse or other home services: Yes Patient Tobacco Use Status: Never used Tobacco service: No Meds Allergies Allergy/AdvReac Type Severity Reaction Status Date / Time No Known Allergies Allergy Verified 06/01/21 14:16 Active Medications: Current Medications Acetaminophen (Acetaminophen 325 Mg Tablet) 650 mg PO Q6H PRN PRN Reason: Pain, Mild (Pain Scale 1-3) Acetaminophen (Acetaminophen Supp 650 Mg Supp.Rect) 650 mg [place] Q6H PRN PRN Reason: Pain, Mild (Pain Scale 1-3) Cyanocobalamin (Cyanocobalamin (Vitamin B-12) 1,000 Mcg Tablet) 1,000 mcg PO DAILY [facility] Last Admin: 03/11/23 08:33 Dose: 1,000 mcg Enoxaparin Sodium (Enoxaparin Sodium 40 Mg/0.4 Ml Syringe) 40 mg SUBCUT Q24H [facility] Last Admin: 03/10/23 08:10 Dose: 40 mg Piperacillin Sod/Tazobactam (Sod 4.5 gm/ Sodium Chloride) 100 mls @ 200 mls/hr IV Q6H [facility] Last Infusion: 03/11/23 06:30 Dose: Infused Melatonin (Melatonin 3 Mg Tablet) 6 mg PO BEDTIME PRN PRN Reason: Insomnia Multivitamins/Vitamin C (Multivitamin Tablet) 1 tab PO DAILY [facility] Last Admin: 03/11/23 08:33 Dose: 1 tab Non-Formulary Medication (Bupropion Hcl) 100 mg PO DAILY [facility] Ondansetron HCl (Ondansetron Hcl 4 Mg/2 Ml Vial) 4 mg IVPUSH Q8H PRN PRN Reason: Nausea and Vomiting Quetiapine Fumarate (Quetiapine Fumarate 200 Mg Tablet) 200 mg PO BEDTIME [facility] Last Admin: 03/10/23 20:45 Dose: 200 mg Sodium Chloride (0.9 % Sodium Chloride Flush 3 Ml Syringe) 3 ml IVFLUSH QSHIFT [facility] Last Admin: 03/11/23 08:33 Dose: 3 ml Vitamin D (Cholecalciferol (Vitamin D3) 25 Mcg Tablet) 50 mcg PO DAILY [facility] Last Admin: 03/11/23 08:33 Dose: 50 mcg Home Medications Medication Instructions Recorded Confirmed Last Taken Type bupropion HCl 100 mg tablet,12 hr 100 mg PO DAILY 06/01/21 03/10/23 03/09/23 History sustained-release cyanocobalamin (vitamin B-12) 1,000 mcg PO DAILY 06/01/21 03/10/23 03/09/23 History 1,000 mcg tablet (Vitamin B-12) acetaminophen 325 mg tablet 650 mg PO Q6H PRN PAIN/SWELLING 03/10/23 03/10/23 Unknown History cholecalciferol (vitamin D3) 50 50 mcg PO DAILY 03/10/23 03/10/23 03/09/23 History mcg (2,000 unit) capsule multivitamin-ferrous 1 tab PO DAILY 03/10/23 03/10/23 03/09/23 History fumarate-folic acid 18 mg-400 mcg tablet quetiapine 200 mg tablet 200 mg PO BEDTIME 03/10/23 03/10/23 03/08/23 History Exam Exam Date and Time: March 11, 2023 1107 Height,Weight and Vital Signs: Height 5 ft 7 in Weight 56.4 kg Last Vital Signs Temp 96.6 F 03/11/23 11:22 Pulse 78 03/11/23 11:22 Resp 20 03/11/23 11:22 BP 111/73 03/11/23 11:22 Pulse Ox 98 03/11/23 11:22 O2 Del Method Room Air 03/11/23 11:22 Pertinent Lab Results Pertinent Lab Results: Laboratory Tests 03/09/23 03/09/23 03/09/23 19:18 23:00 23:01 WBC 16.2 H RBC 4.66 k Hgb 11.1 L Hct 34.9 L MCV 74.9 L MCH 23.8 L MCHC 31.8 RDW 14.3 Plt Count 660 H MPV 8.6 L Immature Gran % (Auto) 0.6 H Neut % (Auto) 81.0 H Lymph % (Auto) 9.1 L [place] % (Auto) 9.0 Eos % (Auto) 0.1 Baso % (Auto) 0.2 Lymph # (Auto) 1.5 [place] # (Auto) 1.5 H Eos # (Auto) 0.0 Baso # (Auto) 0.0 Abs Immat Gran (auto) 0.09 H Absolute Neuts (auto) 13.1 H Absolute Nucleated RBC 0.000 Nucleated RBC % (auto) 0.0 Sodium 133 L Potassium 3.0 L Chloride 101 Carbon Dioxide 22 Anion Gap 13 BUN 10 Creatinine 0.82 Estim Creat Clear Calc 79.3 Estimated GFR > 60 Random Glucose 86 Lactic Acid 1.0 Calcium 8.3 L Magnesium 1.9 Total Bilirubin 0.6 Direct Bilirubin 0.3 AST 20 ALT 14 Alkaline Phosphatase 81 Total Protein 6.2 L Albumin 3.2 L Lipase 5 L Beta HCG, Quant Cancelled Urine Color Yellow Urine Appearance Clear Urine pH 6.0 Ur Specific [place] 1.020 Urine Protein Negative Urine Glucose (UA) Negative Urine Ketones 80 Urine Blood Small (1+) H Urine Nitrite Negative Ur Leukocyte Esterase Moderate (2+) H Urine RBC >20 H Urine WBC 11-20 H Ur Squamous Epith Cells 0-2 Urine Bacteria 4+ Hyaline Casts 0-2 Urine Test NEGATIVE Stl C. cayetanensis PCR Stool Rotavirus A PCR Stl Adenov F 40/41 PCR Stool Astrovirus (PCR) Stool Campylobacter PCR Stool Cryptosporidium PCR Stl Sh Tox Pr E STEC PCR Stool E coli O157 PCR Stl Enterotoxigenic E PCR Stool EPEC (PCR) Stool EAEC (PCR) Stl E. histolytica PCR Stool Giardia Lamblia PCR Stl P. shigelloides PCR Stool Salmonella PCR Stool Sapovirus (PCR) Stl Shigella/EIEC PCR St Y.enterocolitica PCR Stool Vibrio (PCR) Stl Vibrio cholerae PCR Stl Norovirus GI/GII PCR C. difficile Tox B Gene C. difficile Toxin A&B C. difficile Interpret 03/10/23 03/10/23 00:20 04:36 WBC 11.6 H RBC 4.15 L Hgb 9.8 L Hct 31.2 L MCV 75.2 L MCH 23.6 L MCHC 31.4 RDW 14.5 Plt Count 563 H MPV 8.7 L Immature Gran % (Auto) 0.6 H Neut % (Auto) 71.5 Lymph % (Auto) 15.0 L [place] % (Auto) 12.4 H Eos % (Auto) 0.2 Baso % (Auto) 0.3 Lymph # (Auto) 1.7 [place] # (Auto) 1.4 H Eos # (Auto) 0.0 Baso # (Auto) 0.0 Abs Immat Gran (auto) 0.07 H Absolute Neuts (auto) 8.3 Absolute Nucleated RBC 0.000 Nucleated RBC % (auto) 0.0 Sodium 134 L Potassium 3.4 Chloride 105 Carbon Dioxide 17 L Anion Gap 15 BUN 7 L Creatinine 0.66 Estim Creat Clear Calc 98.5 Estimated GFR > 60 Random Glucose 69 Lactic Acid Calcium 7.6 L D Magnesium Total Bilirubin Direct Bilirubin AST ALT Alkaline Phosphatase Total Protein Albumin Lipase Beta HCG, Quant Urine Color Urine Appearance Urine pH Ur Specific [place] Urine Protein Urine Glucose (UA) Urine Ketones Urine Blood Urine Nitrite Ur Leukocyte Esterase Urine RBC Urine WBC Ur Squamous Epith Cells Urine Bacteria Hyaline Casts Urine Test Stl C. cayetanensis PCR Not Detected Stool Rotavirus A PCR Not Detected Stl Adenov F 40/41 PCR Not Detected Stool Astrovirus (PCR) Not Detected Stool Campylobacter PCR Not Detected Stool Cryptosporidium PCR Not Detected Stl Sh Tox Pr E STEC PCR Not Detected Stool E coli O157 PCR Not applicable Stl Enterotoxigenic E PCR Not Detected Stool EPEC (PCR) Not Detected Stool EAEC (PCR) Not Detected Stl E. histolytica PCR Not Detected Stool Giardia Lamblia PCR Not Detected Stl P. shigelloides PCR Not Detected Stool Salmonella PCR Not Detected Stool Sapovirus (PCR) Not Detected Stl Shigella/EIEC PCR Not Detected St Y.enterocolitica PCR Not Detected Stool Vibrio (PCR) Not Detected Stl Vibrio cholerae PCR Not Detected Stl Norovirus GI/GII PCR Not Detected C. difficile Tox B Gene POSITIVE A* C. difficile Toxin A&B Negative C. difficile Interpret SEE NOTE Airway Mallampati Class: Patient Non-Cooperative TM Dist: >3cm Neck ROM: Full Heart: RRR Lungs: CTAB Assessment and Plan Assessment Anesthesia Assessment: Anesthesia Plan Discussed and Chart Reviewed Final Anesthetic Review Family History of Problems with Anesthesia: No History of Problems with Anesthesia: No NPO: Yes ASA Class: III Final Preanesthetic Review: No Changes in Pt Med Stat, Meds/Allgs Chart Reviewed, Consent Obtained/Reviewed and Anes Risks/Benef Reviewed Patient Risk: Intermediate Procedure Risk: Low Assessment/Block/Sedation in SS: Assess/Block/Sedation-SS Anesthetic Plan Anesthetic Plan: MAC: Disposition: Standard PACU
--- NOTE | 2023-03-11 12:33 | MHC.CM.PN ---
PT NOT YET MEDICALLY CLEARED, STILL ON IV ABX DCP REMAINS HOME WITH NO SERVICES VIA SELF TRANSPORT
--- NOTE | 2023-03-11 12:51 | PM.OP ---
Brief Operative Note Date of Service: 03/11/23 Pre-op diagnosis: colitis Post-op diagnosis: same Procedure: colonoscopy Surgeon: Ramesh Simmons MD Anesthesia: MAC Was an [employer] used for this Procedure?: No Estimated blood loss (mL): 2 Pathology: other Condition: stable Disposition: PACU
--- NOTE | 2023-03-11 12:51 | PM.EVENT ---
Event Note Date of Service: 03/11/23 Event Note: Colonoscopy note dictated very mild nonspecific colitis, patchy at 70cm and 30 cm, biopsied. normal ileum remainder of colon >90%, looked normal rec fu bx results d/c abx advance diet, dc when stable Time Spent With Patient Time: Total time managing care of this patient today ____ minutes.
--- NOTE | 2023-03-11 13:08 | OP_ITS ---
DATE OF SERVICE: 03/11/2023 SURGEON: Ramesh Simmons MD INDICATIONS: Colitis. PREOPERATIVE DIAGNOSIS: POSTOPERATIVE DIAGNOSIS: PROCEDURE PERFORMED: Colonoscopy to the terminal ileum with biopsy. ESTIMATED BLOOD LOSS: COMPLICATIONS: ANESTHESIA: Monitored anesthesia care. ASSISTANTS: SPECIMENS: DESCRIPTION OF PROCEDURE: A history and physical was performed. The risks and benefits of the procedure were explained to the patient. Informed consent was obtained. The patient was placed in the left lateral decubitus position. A digital rectal exam was performed and was found to be normal. The Olympus pediatric video colonoscope was introduced into the rectum and advanced to the cecum. The cecum was identified by transillumination, palpation, and identification of ileocecal valve. Examination was performed. The scope was removed. She tolerated the procedure well and was returned to the recovery area in stable condition. FINDINGS: The terminal ileum was examined and appeared normal. This was biopsied. There was no evidence of Crohn disease. The visualized colonic mucosa appeared normal with a few areas with some focal mild changes consistent with mild colitis. This included some mild erythema, edema, and loss of vascular pattern with some superficial punctate ulceration. These were located at 70 cm and 30 cm. The remainder of the colon over 90% appeared normal without evidence of acute colitis. Biopsies were obtained from the terminal ileum, 70 cm and 30 cm. Retroflexed examination was normal. There was a large amount of liquid stool, which limited the sensitivity examination for detection of small polyps. IMPRESSION: Mild nonspecific colitis. RECOMMENDATION: 1. Follow up the biopsy results. 2. Advance diet. 3. Discontinue antibiotics. MD ANTIONETTE Hayes/MICKEYL / [id number]
--- NOTE | 2023-03-11 16:37 | PM.DS ---
DS: Providers Provider Date of Service: 03/11/23 Date of admission: 03/09/23 23:32 Primary care physician: SWEETIE Ramírez Consults: 03/09/23 23:34 Consult to Gastroenterology Routine Consulting Provider: Ramesh Lunsford Reason for consultation: colitis DS: Diagnosis Discharge Diagnosis (1) Pancolitis: Status: Acute DS: Summary Hospital Course Hospital Course: Chief Complaint: Abdominal Pain This is a 47-year-old female with pertinent history of mood disorder, bariatric surgery in 2013 who presents to the emergency department for evaluation of abdominal discomfort and diarrhea. Patient states she has been having generalized abdominal discomfort which has been ongoing for the last few months. The abdominal pain worsened 10 days prior to presentation and it has been associated with nonbloody diarrhea. Patient states he is unable to keep anything down as she has a loose bowel movement every time she eats anything. No nausea or vomiting. The discomfort is in the lower abdomen, constant, without any relieving factors and nonradiating. Patient also noticed 2 episodes of blood in stools last week. No history of similar episodes in the past. No fever, chills, chest discomfort, palpitations, shortness of breath, changes in urinary habits. In the emergency department, patient was found to be septic and imaging concerning for pancolitis Hospital course: She presented with abdominal pain and found to have pancolitis on CT and was started on Zosyn, the next day underwent colonoscopy and found to have colitis that doesn't appear to be infectious, biopsy taken and stopping antibiotics, she feels better, tolorating regular diet. She also had UTI and will be discharged home with oral ceftin for 2 more days. Time Spent with Patient Time attestation: Total time managing care of this patient today ____ minutes. Discharge coordination time: Greater than 30 minutes Quality: Safe Use of Opioids Does Pt have an Active Cancer Diagnosis on the Problem List?: No Quality: Stroke Does the patient have a stroke diagnosis?: No Physical Exam Vital Signs: Vital Signs: Last Vital Signs Temp 97.6 F 03/11/23 15:39 Pulse 86 03/11/23 16:27 Resp 18 03/11/23 15:39 BP 95/54 L 03/11/23 16:27 Pulse Ox 100 03/11/23 15:39 O2 Del Method Room Air 03/11/23 15:39 BMI result Body Mass Index 19.5 DS: Data Data Completed and Pending Pending studies at discharge: Pending at discharge 03/11/23 12:34 Surgical [PTH] Routine Labs on day of discharge: Preliminary micro results at discharge 03/09/23 Unknown Urine Culture - Preliminary Urine clean catch - Urine [place] top Culture in progress. 03/09/23 23:00 Blood Culture - Preliminary Blood - Venous No growth after 24 hours. 03/09/23 23:00 Blood Culture - Preliminary Blood - Venous No growth after 24 hours. Discharge Plan Discharge Anticipated Discharge Date/Time: 03/11/23 16:28 Patient Disposition: Home, Self-Care Discharge Diagnosis: colitis, uti Referrals: Betty Juárez PA [Primary Care Provider] - 1 Week Discharge Medications: New cefuroxime axetil 250 mg tablet 250 mg PO BID 2 Days Qty: 4 0RF Continued quetiapine 200 mg tablet 200 mg PO BEDTIME cholecalciferol (vitamin D3) 50 mcg (2,000 unit) capsule 50 mcg PO DAILY acetaminophen 325 mg Tablet 650 mg PO Q6H PRN (Reason: PAIN/SWELLING) [id number] acid 18-400 mg-mcg Tablet 1 tab PO DAILY cyanocobalamin (vitamin B-12) [Vitamin B-12] 1,000 mcg tablet 1,000 mcg PO DAILY bupropion HCl 100 mg tablet sustained-release 12 hr 100 mg PO DAILY Discharge Orders: Discharge Order (Routine); Ordered 03/11/23 Ordered By: Paulo Griggs Diet: Advance to usual diet Activity on Discharge: As tolerated Stand Alone Forms: Patient Portal Discharge page Care Plan Goals: full recovery from colitis and uti Health Concerns: colitis uti Plan of Treatment: take ceftin for uti dr lunsford will discuss biopsy result with you Assessment: as above
--- NOTE | 2023-03-21 03:58 | PC.NURSE ---
ERROR -?zosyn administered?@ 22:58 after blood culture drawn?@ 22:55 on 03/09/23 Discussed with Sera Beyer and Eli Chen in regards to sepsis protocol.
== END 2023-03-11 17:11 | disposition home or self-care (01) | DRG 249 ==
LOC: HO.ED 22:25 → HO.EDOVER 23:34 → HO.S3 03-10 10:39
PROVIDERS: Internal Medicine Gastroenterology; Physician Assistant Medical; Admitting Provider Student in an Organized Health Care Education/Training Program; Emergency Provider Student in an Organized Health Care Education/Training Program; PCP Physician Assistant; Visit Provider Internal Medicine
PROC: 0DJD8ZZ Inspection of Lower Intestinal Tract, Via Natural or Artificial Opening Endoscopic (ICD-10-PCS; CPT 45378; principal; 2023-03-11 11:40)
DX: K52.9 Noninfective gastroenteritis and colitis, unspecified (principal); E87.5 Hyperkalemia; F31.9 Bipolar disorder, unspecified; Z22.1 Carrier of other intestinal infectious diseases; Z98.84 Bariatric surgery status; Z79.899 Other long term (current) drug therapy
CPT/HCPCS: 45380; 36415; 74176; 80048; 80076; 81001; 81025; 83605; 83690; 83735; 85025; 87040; 87086; 87324; 87493; 87507; 88305; 99221; 99285; J1650; J2543

== ENCOUNTER → 2023-03-09 23:32 | Outpatient (BNV) | payer MEDICAID, SELFPAY | PROVIDERS: Admitting Provider Student in an Organized Health Care Education/Training Program; Emergency Provider Student in an Organized Health Care Education/Training Program; PCP Physician Assistant; Visit Provider Student in an Organized Health Care Education/Training Program | DX: K51.00 Ulcerative (chronic) pancolitis without complications (principal) | CPT/HCPCS: 99222; 99232; 99239 ==

== ENCOUNTER 2023-05-09 11:26 | Outpatient (REF) | payer MEDICAID, SELFPAY ==
[2023-05-09 12:38] LABS: Basophils Absolute Auto 0.1 X10*3/uL (0.0-0.2); Basophils Percent Auto 1.4 % (0-2); Eosinophils Absolute Auto 0.1 X10*3/uL (0.0-0.4); Eosinophils Percent Auto 1.4 % (0-4); Hemoglobin 10.2 g/dl (12.0-16.0); Lymphocytes Absolute Auto 2.2 X10*3/uL (1.2-4.9); Lymphocytes Percent Auto 62.4 % (20-40); MANUAL DIFF FLAG SCAN; Mean Corpuscular HGB Conc 30.9 g/dl (31.0-35.0); Mean Corpuscular Hemoglobin 24.2 pg (27.0-33.0); Mean Corpuscular Volume 78.4 fL (80.0-98.0); Mean Platelet Volume 9.8 fL (9.4-12.3); Monocytes Absolute Auto 0.3 X10*3/uL (0.1-1.2); Monocytes Percent Auto 9.4 % (2-11); Neutrophils Absolute Auto 0.9 x10*3/uL (2.0-8.3); Neutrophils Percent Auto 25.4 % (45-73); Platelet Count 333 X10*3/uL (160-400); Red Blood Count 4.21 X10*6/uL (4.20-5.50); Red Cell Distribution Width 16.4 % (11.0-16.0); SCAN SMEAR FLAG 1; White Blood Count 3.5 X10*3/uL (4.8-10.8)
[2023-05-09 12:59] LABS: SLIDE REVIEW VERIFIED
[2023-05-09 13:19] LABS: Alanine Aminotransferase 7 U/L (0-31); Albumin Level 3.8 g/dL (3.5-5.0); Alkaline Phosphatase 63 U/L (39-117); Aspartate Amino Transferase 16 U/L (5-31); Bilirubin Direct 0.1 mg/dL (0.0-0.5); Bilirubin Total 0.4 mg/dL (0.0-1.0); Lipase 10 U/L (8-78); Total Protein 6.5 g/dL (6.5-8.0)
[2023-05-09 13:34] LABS: TSH reflex Free T4 0.55 uIU/mL (0.32-4.0)
== END 2023-05-09 11:27 | disposition home or self-care (01) ==
LOC: HO.LAB 11:26
PROVIDERS: PCP Physician Assistant; Visit Provider Internal Medicine Gastroenterology
DX: K52.9 Noninfective gastroenteritis and colitis, unspecified (principal); R63.4 Abnormal weight loss
CPT/HCPCS: 36415; 80076; 83690; 84443; 85025; 86364